=== PATIENT | male | born 1970 | race Two or more races ===

== ENCOUNTER 2020-02-27 05:12 | Day surgery (SDC) | payer OTHER ==
[2020-02-27] VITALS (13 sets, daily range): BP systolic 103–122; BP diastolic 58–77
[~2020-02-27] VITALS: Ht 177.8 cm; Wt 93.0 kg
[2020-02-27] MEDS ORDERED: celeBREX 200mg Cap **SURGERY PATIENTS ONLY ORAL ONE (06:00)
[2020-02-27] MEDS ORDERED: oxyCONTIN 10mg tab ORAL ONE (06:00)
[2020-02-27] MEDS ORDERED: ceFAZolin 1gm IVPB IVPB ONE ×2 (06:00)
--- NOTE | 2020-02-27 06:00 | NUR ---
oxycontin 10 mg po was given at 0600 am
[2020-02-27] MEDS ORDERED: Hydromorphone 0.5mg/0.5ml inj IVP PRN (06:45)
[2020-02-27] MEDS ORDERED: HYDROcodone/Acetamin 5/325 tab ORAL PRN ×2 (06:45→07:15)
[2020-02-27] MEDS ORDERED: Atropine Sulfate 0.4mg/ml inj IVP PRN (06:45)
[2020-02-27] MEDS ORDERED: Metoclopramide 10mg/2ml Inj IVP PRN (06:45)
[2020-02-27] MEDS ORDERED: Midazolam 2mg/2ml Inj IVP PRN (06:45)
[2020-02-27] MEDS ORDERED: oxyCODONE HCL/Acetaminophen 5/325mg ORAL PRN (06:45)
[2020-02-27] MEDS ORDERED: fentaNYL 100 mcg/2 mL IV PRN (06:45)
[2020-02-27] MEDS ORDERED: Acetaminophen (Non formulary) 100 ML IV ONE (06:45)
[2020-02-27] MEDS ORDERED: Ketorolac 30mg Inj IV PRN ×2 (06:45)
[2020-02-27] MEDS ORDERED: Meperidine 25mg/0.5ml Inj (FOR RIGORS ONLY) IV PRN (06:45)
[2020-02-27] MEDS ORDERED: LR 1000ml 1,000 ML IVLG SCH (06:45)
[2020-02-27] MEDS ORDERED: DiphenhydrAMINE 50mg/ml Inj IVP PRN (06:45)
[2020-02-27] MEDS ORDERED: Labetalol 5mg/ml 20ml vial IV PRN (06:45)
[2020-02-27] MEDS ORDERED: LORazepam Inj 2mg/ml 1ml IV PRN (06:45)
[2020-02-27] MEDS ORDERED: HYDROcodone/Acetamin 7.5/325 tab ORAL PRN (06:45)
[2020-02-27] MEDS ORDERED: Ropivacaine 5mg/ml Vial 20ml INJ ONE (06:47)
--- NOTE | 2020-02-27 06:49 | Anethesia Preoperative Eval ---
Anesthesia Pre-op PMH/ROS General Date of Evaluation: Feb 27, 2020 Time of Evaluation: 06:49 Anesthesiologist: Hoda ASA Score: ASA 2 Mallampati Score Class I : Soft palate, uvula, fauces, pillars visible Class II: Soft palate, uvula, fauces visible Class III: Soft palate, base of uvula visible Class IV: Only hard plate visible Mallampati Classification: Class II Surgeon: Joel Diagnosis: R Knee Pain Surgical Procedure: R Knee Arthroscopy Anesthesia History: none Family History: no anesthesia problems Allergies: Coded Allergies: No Known Allergies (Unverified , 02/26/20) Medications: see eMAR Patient NPO?: Yes Past Medical History Other: obesity - BMI 31 PSxH Narrative: R Knee ACL repair Anesthesia Pre-op Phys. Exam Physician Exam Last Vital Signs Date Time Temp Pulse Resp B/P (MAP) Pulse Ox O2 Delivery O2 Flow Rate FiO2 02/27/20 05:50 96.4 65 18 122/77 96 Room Air Constitutional: NAD Neurologic: CN 2-12 intact Cardiovascular: RRR Respiratory: CTA Gastrointestinal: S/NT/ND Airway Exam Mallampati Score: Class II MO: full ROM: full Teeth: missing, intact Anesthesia Pre-op A/P Risk Assessment & Plan Assessment: ASA 2 Plan: GA, SED Status Change Before Surgery: No Pre-Antibiotics Dru Grams Ancef IV Given Within 1 Hr of Incision: Yes Time Given: 07:11 Scotty Drummond MD Feb 27, 2020 06:49
--- NOTE | 2020-02-27 06:50 | Immediate Post-Op Evaluation ---
Immediate Post-Op Evalulation Immediate Post-Op Evalulation Procedure: R Knee Arthroscopy Date of Evaluation: Feb 27, 2020 Time of Evaluation: 08:15 IV Fluids: 1000 LR Blood Products: 0 Estimated Blood Loss: 10 Urinary Output: 0 Blood Pressure Systolic: 103 Blood Pressure Diastolic: 64 Pulse Rate: 62 Respiratory Rate: 16 O2 Sat by Pulse Oximetry: 97 Temperature (Fahrenheit): 97.7 Pain Score (1-10): 2 Nausea: No Vomiting: No Complications 0 Patient Status: awake, reacts, patent, none Hydration Status: adequate Dru Grams Ancef IV Given Within 1 Hr of Incision: Yes Time Given: 07:11 Scotty Drummond MD Feb 27, 2020 06:50
[2020-02-27] MEDS ORDERED: NS Irrig 2000ml IRRIG ONE ×4 (06:51→07:41)
--- NOTE | 2020-02-27 06:51 | 48 Hour Post Anesthesia Eval ---
Post Anesthesia Evaluation Procedure: R Knee Arthroscopy Date of Evaluation: Feb 27, 2020 Time of Evaluation: 10:23 Blood Pressure Systolic: 112 0: 73 Pulse Rate: 74 Respiratory Rate: 18 Temperature (Fahrenheit): 98 O2 Sat by Pulse Oximetry: 99 Airway: patent Nausea: No Vomiting: No Pain Intensity: 2 Hydration Status: adequate Cardiopulmonary Status: Stable Mental Status/LOC: patient returned to baseline Follow-up Care/Observations: 0 Post-Anesthesia Complications: 0 Follow-up care needed: ready to discharge Scotty Drummond MD Feb 27, 2020 06:51
[2020-02-27] MEDS ORDERED: Lidocaine 1% MPF 10mg/ml 5ml ONE (06:54)
[2020-02-27] MEDS ORDERED: Sodium Chloride 10ml vial INJ ONE (06:54)
[2020-02-27] MEDS ORDERED: Midazolam 2mg/2ml Inj ONE (06:55)
[2020-02-27] MEDS ORDERED: fentaNYL 100 mcg/2 mL IV ONE (06:55)
[2020-02-27] MEDS ORDERED: Sterile Water Irrig 1000ml IRRIG ONE (07:00)
[2020-02-27] MEDS ORDERED: LR 1000ml ONE (07:00)
--- NOTE | 2020-02-27 07:05 | Pre-Procedure Note/Attestation ---
Pre-Procedure Note/Attestation Complete Prior to Procedure Planned Procedure: right Procedure Narrative: rt knee scope medial meniscectomy Indications for Procedure Pre-Operative Diagnosis: rt knee medial meniscus tear Attestation I attest that I discussed the nature of the procedure; its benefits; risks and complications; and alternatives (and the risks and benefits of such alternatives), prior to the procedure, with the patient (or the patient's legal customer field representative). I attest that, if there was a reasonable possibility of needing a blood transfusion, the patient (or the patient's legal customer field representative) was given the [facility] standardized written summary, pursuant to the Juwan Slig[place] Blood Safety Act ([place] Health and Safety Code # 1645, as amended). I attest that I re-evaluated the patient just prior to the surgery and that there has been no change in the patient's H&P, except as documented below: NONE Timmy Maldonado MD Feb 27, 2020 07:05
[2020-02-27] MEDS ORDERED: HYDROmorphone 1mg/ml Carpuject SUBQ PRN (07:15)
[2020-02-27] MEDS ORDERED: Tylenol #3 tab (300mg/30mg) ORAL PRN (07:15)
--- NOTE | 2020-02-27 07:55 | Brief Operative Note ---
Immediate Post Operative Note Operative Note Chief Complaint: rt knee pain Pre-op Diagnosis: rt knee medial meniscus tear Procedure: rt knee scope, medial meniscectomy and resection of loose fragments Post-op Diagnosis: same as pre-op Findings: consistent w/pre-op dx studies Surgeon: md clint Staff Software Engineer: patricia kinney Anesthesiologist: md roxana Anesthesia: general Specimen: none Complications: none Condition: stable Fluids: ns Estimated Blood Loss: minimal Drains: none Implant(s) used?: No Timmy Maldonado MD Feb 27, 2020 07:55
--- NOTE | 2020-02-27 10:00 | NUR ---
Patient very sleepy and complained of being dizzy when awakened. Continue to rest.
--- NOTE | 2020-02-27 11:15 | Operative Note - Dictated ---
DATE OF OPERATION: 02/27/2020 PREOPERATIVE DIAGNOSES: 1. Right knee recurrent medial meniscus tear. 2. Right knee lateral meniscus tear. 3. Right knee status post ACL reconstruction. POSTOPERATIVE DIAGNOSES: 1. Right knee posterior horn and body of medial meniscus tearing involving 20% of medial meniscus with a large left meniscal component at the body. 2. Right knee anterior horn as well as posterior horn of lateral meniscus tearing involving 25% of lateral meniscus. 3. Right knee previous ACL reconstruction with intact ACL graft. 4. Evidence of prior medial meniscectomy involving majority of the posterior horn and body of the medial meniscus. 5. Free loose fragment measuring 7 mm the anterior compartment of the knee. PROCEDURES: 1. Right knee arthroscopy and extensive intra-articular shaving. 2. Right knee partial lateral meniscectomy involving 25% of the posterior horn as well as anterior horn of lateral meniscus. 3. Right knee partial medial meniscectomy involving 20% of the posterior horn and body of the medial meniscus. 4. Right knee resection of loose free-floating fragment measuring 7 mm. SURGEON: Timmy Maldonado MD COATING MACHINE OPERATOR HELPER: Seema Ramsey PA-C Die Grinder was present during the actual operative portion of the case and was important and essential part of the operation. During the operation, the ward assistant held and operated the arthroscopic camera for visualization, assisted by manipulating the leg to help with visualization, and helped with essential parts of the repair process as necessary such as operating surgical instruments under surgeon supervision, suture management, and wound closures. ANESTHESIOLOGIST: Dr. Drummond. ANESTHESIA: General LMA anesthesia. TOURNIQUET TIME: 25 minutes. ESTIMATED BLOOD LOSS: Minimal. COMPLICATIONS: None. SURGICAL INDICATION: The patient is a 49-year-old male who sustained the above injury to his knee. The patient was treated non-operative initially, but this did not alleviate the patients symptoms. Therefore, after discussing all non-surgical and surgical options, and discussing all foreseeable risk and benefits of surgery, the patient opted for surgical treatment as described above. PATIENT POSITIONING: The patient was brought to the operating room table and placed supine. All pressure points were well padded. Time-out was performed and preop antibiotics were given. General anesthesia was induced and a well-padded tourniquet was placed on the thigh. The lateral post was placed and positioned to allow for opening of the medial compartment of the knee without placing pressure over the fibular head. The patients entire leg was prepped and draped in the usual sterile fashion. Time-out was performed and preoperative antibiotics were given and after exsanguinating the lower extremity, the tourniquet was inflated to 275 mmHg. EXAMINATION OF THE KNEE UNDER ANESTHESIA: Before prepping and draping the knee and while the patient was relaxed under general anesthesia, the knee was examined for ROM, and anterior and posterior, medial and lateral, posterolateral, and posteromedial instability. Pivot-shift testing was performed. There was no evidence of loss of motion or instability and the pivot-shift testing was negative. PORTAL PLACEMENT: The lateral portal was placed with the knee flexed to 90 degrees at the level of inferior border of the patella in line with the lateral border of the patella. A 0.5 cm skin incision was made with an eleven blade, and using a blunt obturator, the capsule was gently penetrated. Sterile saline solution was then infused inside the knee with the aid of a pump set at 35 mmHg pressure. Under direct visualization, placement of the medial portal was preliminarily judged using a spinal needle, and it was subsequently established using the same technique as the lateral portal. Care was given not to injure the cutaneous branches of the medial saphenous nerve or the subcutaneous veins. DIAGNOSTIC ARTHROSCOPY: The suprapatellar patellar pouch was visualized. There was some scar tissue in the suprapatellar pouch. There was no evidence of loose fragments. The medial and lateral patellar facets and trochlear groove articular cartilage was visualized. These structures were intact and were devoid of any articular cartilage damage. The medial plica shelf and the corresponding medial femoral condyle articular cartilage were visualized. There was no significantly thickening of the medial plica shelf and there were no kissing? lesions over the medial femoral condyle. The lateral gutter and the posterolateral corner of the knee were visualized. There were no loose bodies, and the popliteus tendon and other structures of the posterolateral corner of the knee were intact intra-articularly. At this point, the knee was placed in the [id number] position and the lateral compartment was entered. The lateral femoral condyle, lateral tibial plateau, and the anterior horn, the body, and the posterior horn of the lateral meniscus were visualized and probed. The articular surfaces were intact and devoid of articular cartilage damage. There was a free-edge tear of the anterior horn of the lateral meniscus as well as posterior horn of the lateral meniscus. There was a frayed component. There was also a loose fragment in the lateral compartment just at the level of the meniscus and the popliteus tendon. The knee was then placed at 90 degrees and the ACL and PCL were visualized and probed. There was evidence of previous ACL reconstruction with an intact ACL graft. The PCL was completely intact on visualization and probing and it had excellent tension. The medial compartment was then entered and the medial femoral condyle, medial tibial plateau, and the anterior, body, and the posterior horn of the medial meniscus were visualized and probed. The articular surfaces were intact and devoid of articular cartilage damage. There was evidence of previous posterior horn, body, and anterior horn medial meniscectomy involving the 60% of the medial meniscus. There was evidence of a recurrent tear of the body of the medial meniscus, which had flipped over and was flipped on the medial capsule. This involved 20% of medial meniscus. There was a loose fragment that was noted in the medial compartment and that later floated to the anterior notch. The medial gutter was visualized. There was no evidence of defect or loose fragments. The scope was then brought back to the patellofemoral compartment. OPERATIVE ARTHROSCOPY: At this point, all loose debris and fragments were removed with the use of suction motorized shaver. Specific attention was given to assure all visible loose fragments were irrigated out of the knee joint with pump inflow and cannula outflow system. The loose fragments were identified and visualized. Using combination of the shaver, suction, and graspers, these loose fragments were removed. These loose fragments measured approximately 7 to 8 mm. All debris left behind was removed with combination of unruly and graspers. At this point, attention was given to the lateral meniscus. Using combination of baskets and unruly, the torn portion of the lateral meniscus was removed. Attention was given to remove all displaced and unstable portion of the lateral meniscus while maintaining as much of the functional portion of the meniscus as possible. Approximately, 25% of the anterior horn as well as posterior horn of the meniscus was removed in this fashion. The transition between the meniscectomy portion and intact portion of the meniscus was smoothed out with combination of small baskets and unruly. Excellent transition zone was obtained in this fashion. At this point, attention was given to the medial meniscus. Using combination of baskets and unruly, the torn portion of the medial meniscus was removed. Attention was given to remove all displaced and unstable portion of the medial meniscus while maintaining as much of the functional portion of the meniscus as possible. Approximately, 20% of the body and posterior horn of the medial meniscus was removed in this fashion. The transition between the meniscectomy portion and intact portion of the meniscus was smoothed out with combination of small baskets and unruly. Excellent transition zone was obtained in this fashion. CONDITION AT DISCHARGE FROM OPERATING ROOM: The knee was irrigated with copious amount of normal saline at the end of the procedure. The scope was removed and the water was drained. The skin edges were re-approximated and sterile dressing was applied. All lap count and instrument counts were correct. The patient tolerated the procedure well without complications and was taken to the recovery room in stable conditions. Timmy Maldonado M.D. DR: Heide JOB#: [id number] CC:
[2020-02-27] MEDS ORDERED: D5 1/2NS 1,000 ML IV SCH (12:00)
== END 2020-02-27 11:40 | disposition home or self-care (01) ==
LOC: SUR 05:12
DX: S83.281A Other tear of lateral meniscus, current injury, right knee, initial encounter (principal); S83.241A Other tear of medial meniscus, current injury, right knee, initial encounter; M23.41 Loose body in knee, right knee; E66.9 Obesity, unspecified; Z68.29 Body mass index [BMI] 29.0-29.9, adult; X58.XXXA Exposure to other specified factors, initial encounter; Y92.9 Unspecified place or not applicable
CPT/HCPCS: 29880; 94003; J0131; J0690; J1100; J2250; J2405; J2704; J2795; J3010; J7120; U0002; 94150